=== PATIENT | male | born 1965 | race Asian ===

== ENCOUNTER 2023-11-25 17:27 | Emergency (ER) | payer SELFPAY ==
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
[2023-11-25 18:54] VITALS: TEMP 97.8; O2SAT 98
[2023-11-25 18:56] VITALS: BP 115/79
== END 2023-11-25 18:50 | disposition home or self-care (01) ==
LOC: ER 17:27
DX: F10.229 Alcohol dependence with intoxication, unspecified (principal)
CPT/HCPCS: 99283